=== PATIENT | male | born 1990 | race Caucasian/White ===

== ENCOUNTER 2019-04-07 15:30 | Emergency (ER) | payer SELFPAY ==
[~2019-04-07] VITALS: Ht 182.9 cm; Wt 95.3 kg
[2019-04-07 17:24] LABS: BILIRUBIN,URINE SMALL (NEG); CLARITY,URINE CLOUDY; COLOR,URINE AMBER; NITRITE,URINE NEGATIVE (NEG); PH,URINE 5.5; PROTEIN,URINE 30 mg/dL (NEG-TRACE)
[2019-04-07 17:30] LABS: BACTERIA,URINE MANY /HPF (0-FEW); RBC,URINE OCC /HPF (0-2); WBC,URINE TNTC /HPF (0-4)
[2019-04-07 17:31] LABS: SQUAMOUS EPITHELIAL CELL,UR OCC /LPF
[2019-04-07] MEDS ORDERED: IV NORMAL SALINE 1000ML BAG 1,000 ML IV SCH (17:56)
[2019-04-07] MEDS ORDERED: fentaNYL PF VIAL 100 MCG/2 ML VIAL IV ONE (18:00)
--- NOTE | 2019-04-07 18:07 | PHYS DOC ---
Past Medical History Past Medical History: No Pertinent History (KYLE MILLER APRN) Past Surgical History: No Surgical History (KYLE MILLER APRN) Alcohol Use: None Drug Use: None (KYLE MILLER APRN) Attending Signature I have participated in the care of this patient and I have reviewed and agree with all pertinent clinical information above including history, exam, and recommendations. (ARTHUR FERNANDEZ MD) Adult General Chief Complaint Chief Complaint: PAIN ON URINATION HPI HPI Patient is a 28 year old male who presents with patient states 2 weeks ago began having urinary frequency and feeling that he could not empty his bladder and had penile discharge. Patient states then those symptoms went away except for the urgency and now he has rectal pressure. Patient denies back pain, nausea, vomiting, fevers, chills, testicle pain. Rates his discomfort a 7 out of 10. (KYLE MILLER APRN) Review of Systems Review of Systems GI: Rectal pressure. Denies abdominal pain, nausea, vomiting, bloody stools or diarrhea [] : dysuria or hematuria [] All other systems were reviewed and found to be within normal limits, except as documented in this note. (KYLE MILLER APRN) Current Medications Current Medications Current Medications Medications (Trade) Dose Ordered Sig/Tyrone Start Time Stop Time Status Last Admin Dose Admin Ceftriaxone Sodium (Rocephin) 1 gm 1X ONCE 04/07/19 18:45 04/07/19 18:46 DC 04/07/19 18:59 1 GM Fentanyl Citrate (Fentanyl 2ml Vial) 50 mcg 1X ONCE 04/07/19 19:00 04/07/19 19:01 DC 04/07/19 18:59 50 MCG Info (CONTRAST GIVEN -- Rx MONITORING) 1 each PRN DAILY PRN 04/07/19 19:00 04/07/19 22:22 DC Iohexol (Omnipaque 300 Mg/ml) 75 ml 1X ONCE 04/07/19 19:00 04/07/19 19:01 DC 04/07/19 19:10 75 ML Sodium Chloride 1,000 ml @ 1,000 mls/hr 1X ONCE 04/07/19 19:00 04/07/19 19:59 DC 04/07/19 19:32 1,000 MLS/HR (ARTHUR FERNANDEZ MD) Allergies Allergies Allergies Coded Allergies Type Severity Reaction Last Updated Verified No Known Drug Allergies 04/07/19 No (ARTHUR FERNANDEZ MD) Physical Exam Physical Exam Constitutional: Well developed, well nourished, no acute distress, non-toxic appearance. [] HENT: Normocephalic, atraumatic, bilateral external ears normal, oropharynx moist, no oral exudates, nose normal. [] Eyes: PERRLA, EOMI, conjunctiva normal, no discharge. [] Neck: Normal range of motion, no tenderness, supple, no stridor. [] Cardiovascular:Heart rate regular rhythm, no murmur [] Lungs & Thorax: Bilateral breath sounds clear to auscultation [] Abdomen: Bowel sounds normal, soft, no tenderness, no masses, no pulsatile masses. [] Skin: Warm, dry, no erythema, no rash. [] Back: No tenderness, no CVA tenderness. [] Extremities: No tenderness, no cyanosis, no clubbing, ROM intact, no edema. [] Neurologic: Alert and oriented X 3, normal motor function, normal sensory function, no focal deficits noted. [] Psychologic: Affect normal, judgement normal, mood normal. [] Normal Physical Exam (BAFUS,KYLE Clarissa TAPIAN) Current Patient Data Vital Signs Vital Signs Date Time Temp Pulse Resp B/P (MAP) Pulse Ox O2 Delivery O2 Flow Rate FiO2 04/07/19 22:18 104 20 166/105 (125) 96 Room Air 04/07/19 17:00 98.9 98.9 (ARTHUR FERNANDEZ MD) Lab Values Laboratory Tests Test 04/07/19 17:10 04/07/19 18:00 04/07/19 18:50 Urine Collection Type Void Urine Color Jocy Urine Clarity Cloudy Urine pH 5.5 Urine Specific [place] 1.025 Urine Protein 30 mg/dL (NEG-TRACE) Urine Glucose (UA) Negative mg/dL (NEG) Urine Ketones (Stick) Negative mg/dL (NEG) Urine Blood Moderate (NEG) Urine Nitrite Negative (NEG) Urine Bilirubin Small (NEG) Urine Urobilinogen Dipstick 1.0 mg/dL (0.2 mg/dL) Urine Leukocyte Esterase Large (NEG) Urine RBC Occ /HPF (0-2) Urine WBC Tntc /HPF (0-4) Urine Squamous Epithelial Cells Occ /LPF Urine Bacteria Many /HPF (0-FEW) Urine Mucus Marked /LPF White Blood Count 15.7 x10^3/uL (4.0-11.0) H Red Blood Count 4.95 x10^6/uL (4.30-5.70) Hemoglobin 15.1 g/dL (13.0-17.5) Hematocrit 44.8 % (39.0-53.0) Mean Corpuscular Volume 91 fL (79-100) Mean Corpuscular Hemoglobin 31 pg (25-35) Mean Corpuscular Hemoglobin Concent 34 g/dL (31-37) Red Cell Distribution Width 12.5 % (11.5-14.5) Platelet Count 401 x10^3/uL (140-400) H Neutrophils (%) (Auto) 75 % (31-73) H Lymphocytes (%) (Auto) 15 % (24-48) L Monocytes (%) (Auto) 8 % (0-9) Eosinophils (%) (Auto) 1 % (0-3) Basophils (%) (Auto) 0 % (0-3) Neutrophils # (Auto) 11.8 x10^3/uL (1.8-7.7) H Lymphocytes # (Auto) 2.4 x10^3/uL (1.0-4.8) Monocytes # (Auto) 1.3 x10^3/uL (0.0-1.1) H Eosinophils # (Auto) 0.1 x10^3/uL (0.0-0.7) Basophils # (Auto) 0.0 x10^3/uL (0.0-0.2) Sodium Level 137 mmol/L (136-145) Potassium Level 4.4 mmol/L (3.5-5.1) Chloride Level 100 mmol/L (98-107) Carbon Dioxide Level 30 mmol/L (21-32) Anion Gap 7 (6-14) Blood Urea Nitrogen 6 mg/dL (8-26) L Creatinine 0.9 mg/dL (0.7-1.3) Estimated GFR (Cockcroft-Gault) 99.1 BUN/Creatinine Ratio 7 (6-20) Glucose Level 102 mg/dL (70-99) H Lactic Acid Level 1.8 mmol/L (0.4-2.0) Calcium Level 9.4 mg/dL (8.5-10.1) Total Bilirubin 0.4 mg/dL (0.2-1.0) Aspartate Amino Transferase (AST) 29 U/L (15-37) Alanine Aminotransferase (ALT) 68 U/L (16-63) H Alkaline Phosphatase 128 U/L (46-116) H Total Protein 9.4 g/dL (6.4-8.2) H Albumin 3.5 g/dL (3.4-5.0) Albumin/Globulin Ratio 0.6 (1.0-1.7) L Lipase 83 U/L (73-393) Urine Chlamydia DNA (PCR) Negative (Negative) Neisseria gonorrhoeae DNA (PCR) Positive (Negative) A Laboratory Tests 04/07/19 18:00 Laboratory Tests 04/07/19 18:00 Microbiology 04/07/19 Blood Culture - Preliminary, Resulted NO GROWTH AFTER 2 DAYS 04/07/19 Urine Culture - Final, Complete 04/07/19 Urine Culture Result 1 (DEZ) - Final, Complete (ARTHUR FERNANDEZ MD) EKG EKG [] (KYLE MILLER APRN) Radiology/Procedures Radiology/Procedures [] (KYLE MILLER APRN) Impressions: [facility] [address] [place] [address] IMAGING REPORT Signed PATIENT: VALERY SORIANO ACCOUNT: [id number] : 1990 LOCATION: ER AGE: 28 SEX: M EXAM STATUS: REG ER ORD. PHYSICIAN: KYLE MILLER APRN REASON: low abd pain, rectal pain PROCEDURE: CT ABD PELV W/ IV CONTRST ONLY CT abdomen and pelvis with contrast Contrast: 75 mL Omnipaque 300 intravenous contrast. PQRS statement: CT scans at this facility use dose reduction including either automated exposure control, iterative reconstructions, and /or weight based radiation dosing via mA and kV modification when appropriate to reduce radiation dose to as low as reasonably achievable. HISTORY: Lower abdominal pain and rectal pain. Abdomen findings: Upper liver dome outside the [id number]. Lung bases unremarkable. Bilateral L5 spondylolysis defects. Lumbar disc disease. Hypodensity of the liver likely fatty. Focal sparing gallbladder fossa. Right kidney, adrenal glands, gallbladder, pancreas and spleen are unremarkable. Subcentimeter hypodensity left renal lower pole too small to characterize due to volume averaging presumably small cysts. Appendix is negative. Luminal collapse and wall thickening rectosigmoid colon without surrounding edema. No abdominal fluid or adenopathy. Pelvis findings: Within the prostate there is a heterogeneous 2 cm oblong hypodensity with mild peripheral surrounding enhancement with smaller hypodensities within the right aspect of the prostate, there may be mild edema surrounding the prostate and seminal vesicles as well. Rectosigmoid luminal collapse and wall thickening. Bladder and bones are unremarkable. IMPRESSION: 1. 2 cm dominant hypodense lesion within the prostate with adjacent smaller hypodensities, and mild surrounding edema about the prostate and seminal vesicles. Given the surrounding edema this could indicate an abscess within the prostate. Nodular hyperplasia, a cyst or malignancy would also be considerations. 2. Luminal collapse without surrounding edema of the rectosigmoid colon likely muscle spasm. Colitis is less likely. 3. Appendix is negative. Electronically signed by: Titi Vargas MD (04/07/2019 7:24 PM) [facility] DICTATED and SIGNED BY: TITI VARGAS MD DATE: 04/07/191923 (KYLE MILLER APRN) Course & Med Decision Making Course & Med Decision Making Abdomen is soft and nontender. Patient states that he does have low mid bladder sharp pains that come and go. Denies fevers. No CVA tenderness. Skin pink warm and dry. PERRLA. Mucous membranes moist. Ambulatory with a steady gait. Did check his prostate with Cat MONCADA in the room. Prostate was smooth with no nodules were felt. Patient did state that when I applied pressure to his prostate the pressure was relieved. Patient states he no longer has drainage from his penis. Exam: Scrotum: Normal Hernia: None Testes/Epid: Non-tender w/ normal lie Cremaster: Reflex intact Lymph: No inguinal lymphadenopathy Discharge: None CT ABD PELV IMPRESSION: 1. 2 cm dominant hypodense lesion within the prostate with adjacent smaller hypodensities, and mild surrounding edema about the prostate and seminal vesicles. Given the surrounding edema this could indicate an abscess within the prostate. Nodular hyperplasia, a cyst or malignancy would also be considerations. 2. Luminal collapse without surrounding edema of the rectosigmoid colon likely muscle spasm. Colitis is less likely. 3. Appendix is negative. I have spoken to the patient about his medical diagnosis and the need to be transferred to because we do not have Urology. I have spoken to transfer team for transfer. (KYLE MILLER APRN) Dragon Disclaimer Dragon Disclaimer This electronic medical record was generated, in whole or in part, using a voice recognition dictation system. (KYLE MILLER APRN) Departure Departure Impression: Primary Impression: Prostate abscess Additional Impression: Urinary tract infection Disposition: 05 TRANSFER OTHER ( UROLOGY) Condition: STABLE Referrals: NO PCP (PCP) Problem Qualifiers Additional Impression: Urinary tract infection Urinary tract infection type: site unspecified Hematuria presence: without hematuria Qualified Codes: N39.0 - Urinary tract infection, site not specified KYLE MILLER APRN Apr 07, 2019 18:07 ARTHUR FERNANDEZ MD Apr 10, 2019 18:17
[2019-04-07 18:17] LABS: BASO % 0 % (0-3); EOS # 0.1 x10^3/uL (0.0-0.7); EOS % 1 % (0-3); HEMATOCRIT 44.8 % (39.0-53.0); HEMOGLOBIN 15.1 g/dL (13.0-17.5); LYMPH # 2.4 x10^3/uL (1.0-4.8); LYMPH % 15 % (24-48); MEAN CORPUSCULAR HEMOGLOBIN 31 pg (25-35); MEAN CORPUSCULAR HGB CONC 34 g/dL (31-37); MEAN CORPUSCULAR VOLUME 91 fL (79-100); MONO # 1.3 x10^3/uL (0.0-1.1); MONO % 8 % (0-9); NEUT # 11.8 x10^3/uL (1.8-7.7); NEUT % 75 % (31-73); PLATELET COUNT 401 x10^3/uL (140-400); RED BLOOD COUNT 4.95 x10^6/uL (4.30-5.70); RED CELL DISTRIBUTION WIDTH 12.5 % (11.5-14.5); WHITE BLOOD COUNT 15.7 x10^3/uL (4.0-11.0)
[2019-04-07 18:23] LABS: CALCIUM 9.4 mg/dL (8.5-10.1); CREATININE 0.9 mg/dL (0.7-1.3); GFR 99.1; POTASSIUM 4.4 mmol/L (3.5-5.1)
[2019-04-07 18:29] LABS: ALBUMIN 3.5 g/dL (3.4-5.0); ALBUMIN/GLOBULIN RATIO 0.6 (1.0-1.7); TOTAL BILIRUBIN 0.4 mg/dL (0.2-1.0); TOTAL PROTEIN 9.4 g/dL (6.4-8.2)
[2019-04-07] MEDS ORDERED: cefTRIAXone IV Push 1 GM VIAL. IVP ONE (18:45)
[2019-04-07] MEDS ORDERED: IV NORMAL SALINE 1000ML BAG 1,000 ML IV ONE (19:00)
[2019-04-07] MEDS ORDERED: IOHEXOL 300 MG/ML 100ML VIAL. IV ONE (19:00)
[2019-04-07] MEDS ORDERED: CONTRAST GIVEN. MC PRN (19:00)
[2019-04-07] MEDS ORDERED: fentaNYL PF VIAL 100 MCG/2 ML VIAL IVP ONE (19:00)
--- NOTE | 2019-04-07 19:27 | RAD ---
CT abdomen and pelvis with contrast Contrast: 75 mL Omnipaque 300 intravenous contrast. PQRS statement: CT scans at this facility use dose reduction including either automated exposure control, iterative reconstructions, and /or weight based radiation dosing via mA and kV modification when appropriate to reduce radiation dose to as low as reasonably achievable. HISTORY: Lower abdominal pain and rectal pain. Abdomen findings: Upper liver dome outside the [id number]. Lung bases unremarkable. Bilateral L5 spondylolysis defects. Lumbar disc disease. Hypodensity of the liver likely fatty. Focal sparing gallbladder fossa. Right kidney, adrenal glands, gallbladder, pancreas and spleen are unremarkable. Subcentimeter hypodensity left renal lower pole too small to characterize due to volume averaging presumably small cysts. Appendix is negative. Luminal collapse and wall thickening rectosigmoid colon without surrounding edema. No abdominal fluid or adenopathy. Pelvis findings: Within the prostate there is a heterogeneous 2 cm oblong hypodensity with mild peripheral surrounding enhancement with smaller hypodensities within the right aspect of the prostate, there may be mild edema surrounding the prostate and seminal vesicles as well. Rectosigmoid luminal collapse and wall thickening. Bladder and bones are unremarkable. IMPRESSION: 1. 2 cm dominant hypodense lesion within the prostate with adjacent smaller hypodensities, and mild surrounding edema about the prostate and seminal vesicles. Given the surrounding edema this could indicate an abscess within the prostate. Nodular hyperplasia, a cyst or malignancy would also be considerations. 2. Luminal collapse without surrounding edema of the rectosigmoid colon likely muscle spasm. Colitis is less likely. 3. Appendix is negative. Electronically signed by: Tushar Hurley MD (04/07/2019 7:24 PM) [facility]
[2019-04-07 22:18] VITALS: BP 166/105
== END 2019-04-07 22:20 | disposition short-term general hospital (02) ==
LOC: ER 15:30
DX: N41.2 Abscess of prostate (principal); N39.0 Urinary tract infection, site not specified
CPT/HCPCS: 36415; 74177; 80053; 81001; 83605; 83690; 85025; 87040; 87086; 87491; 87591; 96374; 96375; 96376; 99285; J0696; J3010; J7030; Q9967